=== PATIENT | female | born 1975 | race African-American/Black ===

== ENCOUNTER 2017-05-05 01:51 | Emergency (ER) | payer MEDICAID ==
[~2017-05-05] VITALS: Ht 162.6 cm; Wt 70.0 kg
[2017-05-05 01:55] VITALS: BP 131/76
== END 2017-05-05 03:29 | disposition home or self-care (01) ==
LOC: ED 02:47
DX: Z00.00 Encounter for general adult medical examination without abnormal findings (principal); J11.1 Influenza due to unidentified influenza virus with other respiratory manifestations
CPT/HCPCS: 99283

== ENCOUNTER 2019-09-15 01:52 | Emergency (ER) | payer MEDICAID ==
[~2019-09-15] VITALS: Ht 162.6 cm; Wt 79.8 kg
[2019-09-15 02:10] VITALS: BP 145/86
[2019-09-15] MEDS ORDERED: ALBUTEROL/IPRATROPIUM 2.5MG/0.5MG, 3 ML NPPB ONE (02:30)
--- NOTE | 2019-09-15 02:36 | NUR ---
PT AMB TO ROOM WITH STEADY GAIT NO ASSIST NEEDED AT THIS TIME
--- NOTE | 2019-09-15 02:47 | NUR ---
THIS IS A 44Y F THAT COMES IN FOR NASAL CONGESTION AND COUGH. PT HAS HX OF ASTHMA AND HAS NOT HAD MEDS IN SOME TIME. PER PT SHE USES "AN ALBUTEROL PUMP AND CLARITIN EVERYDAY." PT ARGUING WITH BOYFRIEND AT BEDSIDE AND STS "I AM NOT GOING TO GET THIS JOB IF YOU KEEP INTERUPTING HER QUESTIONS." PT INFORMED THIS IS NOT AN INTERVIEW FOR A JOB BUT A HOSPITAL TO CARE FOR SICK PATIENTS. RESPIRATORY AT BEDSIDE, PUMA
[2019-09-15] MEDS ORDERED: ALBUTEROL SULFATE 2.5 MG/3 ML NPPB ONE (04:00)
== END 2019-09-15 04:41 | disposition home or self-care (01) ==
LOC: ED 03:42
DX: J45.41 Moderate persistent asthma with (acute) exacerbation (principal); F15.10 Other stimulant abuse, uncomplicated; F17.200 Nicotine dependence, unspecified, uncomplicated; R05 Cough; Z98.51 Tubal ligation status; Z72.9 Problem related to lifestyle, unspecified
CPT/HCPCS: 71046; 94640; 99284; J7512; J7613